=== PATIENT | male | born 2000 | race Caucasian/White ===

== ENCOUNTER 2022-07-09 14:11 | Emergency (ER) | payer OTHER ==
[2022-07-09 16:58] LABS: #Basophils 0.2 thou/uL (0.0-0.2); #Eosinphils 0.3 thou/uL (0.0-0.7); #Neutrophils 5.7 thou/uL (1.40-6.50); %Eosinophils 2.8 % (0.0-10.0); %Lymphocytes 29.2 % (28.0-48.0); %Monocytes 10.1 % (0.0-4.0); %Neutrophils 55.9 % (31.0-61.0); Hemoglobin 15.7 g/dL (14.0-18.0); Mean Corpuscular HGB CONC 32.6 g/dL (32.0-36.0); Mean Corpuscular Hemoglobin 28.7 pg (25.0-35.0); Mean Corpuscular Volume 87.9 fl (78.0-98.0); Mean Platelet Volume 7.7 fL (7.4-10.4); Platelet Count 263 10x3/uL (130-400); RBC Distribution Width 11.4 % (11.5-14.5); Red Blood Cell (RBC) Count 5.46 mill/uL (4.00-5.20); White Blood Cell (WBC) Count 10.1 10x3/uL (4.8-10.8)
[2022-07-09 17:02] LABS: Bilirubin Negative (Negative); Blood, Urine Negative (Negative); Glucose, Urine (Dipstick) Negative (Negative); Ketone, Urine Negative (Negative); Leukocyte Negative (Negative); Nitrite Negative (Negative); Protein, Urine (Dipstick) Negative (Neg-Trace); Urobilinogen 0.2 mg/dL (Less than 2)
[2022-07-09 17:03] LABS: Clarity Hazy (Clear)
[2022-07-09 17:14] LABS: ALT (SGPT) 30 U/L (8-55); AST (SGOT) 36 U/L (10-45); Albumin 4.8 g/dL (3.5-5.0); Alkaline Phosphatase 66 U/L (50-130); Anion Gap 14 mmol/L (10-20); BUN (Urea Nitrogen) 14 mg/dL (8.4-21.0); Bilirubin, Total 0.4 mg/dL (0.2-1.2); Calc. Creatinine Clearance 0 mL/min (70-130); Carbon Dioxide 26 mmol/L (22-29); Chloride 105 mmol/L (98-107); Estimated GFR 127; Globulin 3.3 g/dL (2.4-3.5); Glucose 90 mg/dL (70-105); Potassium 4.2 mmol/L (3.5-5.1); Protein, Total 8.1 g/dL (6.0-8.3); Sodium 141 mmol/L (136-145)
[2022-07-10 12:20] LABS: Campy jejuni + coli by PCR Negative (Negative); STEC Shiga Toxin 1+2 Negative (Negative); Salmonella spp. by PCR Negative (Negative); Shigella spp + EIEC by PCR Negative (Negative)
== END 2022-07-09 18:04 | disposition home or self-care (01) ==
LOC: MADERS 14:11
DX: K52.9 Noninfective gastroenteritis and colitis, unspecified (principal); F17.220 Nicotine dependence, chewing tobacco, uncomplicated
CPT/HCPCS: 80053; 81003; 82274; 83630; 85025; 86403; 87505; 99284